=== PATIENT | female | born 1980 | race Caucasian/White ===

== ENCOUNTER 2019-05-02 09:45 | Emergency (ER) | payer BC ==
[~2019-05-02] VITALS: Ht 160 cm; Wt 127.3 kg
[2019-05-02 09:49] VITALS: BP 147/113
[2019-05-02] MEDS ORDERED: ALBU8HFA PO (10:35)
== END 2019-05-02 11:50 | disposition home or self-care (01) ==
LOC: ER 09:45
DX: J06.9 Acute upper respiratory infection, unspecified (principal); J45.909 Unspecified asthma, uncomplicated; Z88.2 Allergy status to sulfonamides; Z88.1 Allergy status to other antibiotic agents
CPT/HCPCS: 71045; 99283